=== PATIENT | male | born 2000 | race Caucasian/White ===

== ENCOUNTER 2024-08-11 16:41 | Emergency (ER) | payer OTHER | END 2024-08-11 18:26 | disposition home or self-care (01) | LOC: MW.ED 16:41 | DX: S61.012A Laceration without foreign body of left thumb without damage to nail, initial encounter (principal); Z75.8 Other problems related to medical facilities and other health care; W26.8XXA Contact with other sharp object(s), not elsewhere classified, initial encounter; Y93.89 Activity, other specified | CPT/HCPCS: 12001; 99282 ==